=== PATIENT | male | born 1950 | race Caucasian/White ===

== ENCOUNTER → 2017-05-08 | Outpatient (CLI) | payer OTHER ==
[~2017-05-08] MED LIST: ASPI81TA82 PO; AUGM875T PO; HYDR-3533 PO; NEBI2.5 PO
--- NOTE | 2017-05-09 10:13 | RSPPFT ---
DATE OF PROCEDURE: 05/08/17 COMMENTS: Spirometry shows FVC of 3.5 at 67% of predicted, FEV1 of 2.5 at 61%, FEV1/FVC ratio is decreased. Flow is decreased at FEF 25 FEF 50, FEF 75 and FEF 25-75. There is no response to bronchodilator treatment. Lung volumes show residual volume is increased. TLC is normal. Diffusion capacity is normal. Flow volume loop indicates an obstructive pattern. IMPRESSION: 1. Mild obstructive lung disease. 2. No response after bronchodilator treatment. 3. Lung volumes show mild hyperinflation. 4. Diffusion capacity is normal.
== END ==
LOC: PHRSP 07:37
PROVIDERS: ATTEND Specialist
DX: J44.9 Chronic obstructive pulmonary disease, unspecified (principal)
CPT/HCPCS: 94060; 94726; 94729

== ENCOUNTER 2017-06-12 06:24 | Day surgery (SDC) | payer OTHER ==
[~2017-06-12] VITALS: Ht 190.5 cm; Wt 104.5 kg
[2017-06-12] VITALS (7 sets, daily range): BP systolic 116–145; BP diastolic 76–89; PULSE 77–95; RESP 17–20; TEMP 97.9–98.4; O2SAT 95–98
[2017-06-12] MEDS ORDERED: ASPI-516 CHEW (06:48)
[2017-06-12] MEDS ORDERED: OMEP2.5S (06:48)
[2017-06-12] MEDS ORDERED: BUPR150XL PO (06:48)
[2017-06-12] MEDS ORDERED: LORA0.5T PO (07:15)
[2017-06-12] MEDS ORDERED: SODIUM CHLOR 0.9% 1000 ML IV SCH (07:30)
[2017-06-12] MEDS ORDERED: SODIUM CHLORIDE 2 ML FLUSH PRN IV FLUSH (07:30)
[2017-06-12] MEDS ORDERED: LIDOCAINE HCL 1% PF 30 ML VIAL ONE (07:59)
[2017-06-12] MEDS ORDERED: MIDAZOLAM HCL 2 MG/2 ML VIAL ONE (08:11)
--- NOTE | 2017-06-12 08:57 | PD.RAD ---
Post CT Procedure Prog Note Pre Procedure Diagnosis: (1) Pulmonary nodule Post Procedure Diagnosis: (1) Pulmonary nodule Procedure Date: Jun 12, 2017 Supervising Radiologist: Yunier Velasco Estimated blood loss: minimal Anesthesia: Conscious Sedation Plan of Activity Patient to Unit: [facility] Patient Condition: Good See PACS Report for procedural detail/treatment Biopsy Imaging Guidance: CT Side: Right Biopsy Procedure: Lung Site: upper lobe/hilar nodule Specimen: Core Biopsy Plan to [facility] for monitoring then discharge in 4 hours if no pneumothorax. Yunier Velasco MD Jun 12, 2017 08:57
[2017-06-12] MEDS ORDERED: oxyCODONE/ACETAMINOPHEN 5 MG/325 MG TAB PO PRN (09:00)
[2017-06-12] MEDS ORDERED: SODIUM CHLORIDE 2 ML FLUSH BID IV FLUSH SCH (09:00)
--- NOTE | 2017-06-12 09:41 | RADRPT ---
EXAM DATE/TIME: 06/12/2017 08:20 [facility] COMPARISON: No previous studies available for comparison. INDICATIONS : Right lung mass SEDATION TIME: 15 minutes BIOPSY SITE: Right lung MEDICATION(S): 1.) 2 mg midazolam (Versed) IV 2.) 100 mcg fentanyl (Sublimaze) IV DEVICE(S): 1.) 18 gauge Galvez blunt needle 2.) 20 gauge Temno core biopsy needle MEDICAL HISTORY : Hypertension. Gastroesophageal reflux disease. SURGICAL HISTORY : Appendectomy. ENCOUNTER: Initial ACUITY: 1 day PAIN SCORE: 0/10 LOCATION: Right chest A total of five core specimen(s) were obtained and sent to the laboratory for pathologic evaluation. PROCEDURE: 1. CT guided lung biopsy. 2. Conscious sedation with continuous EKG and oximetry monitoring. 3. EKG and oximetry remained stable throughout the procedure. Prior to the procedure informed consent was obtained. The patient's prior CT and PET CT examinations were reviewed. Using automated exposure control and adjustment of the mA and/or kV according to patie nt size, radiation dose was kept as low as reasonably achievable to obtain optimal diagnostic quality images. DICOM format image data is available electronically for review and comparison. The site was prepped in a sterile fashion. Full sterile technique was used, including cap, mask, vignesh rile gloves and gown and a large sterile sheet. Hand hygiene and 2% chlorhexidine and/or betadine/al cohol prep was utilized per protocol for cutaneous antisepsis. The skin and subcutaneous tissues wer e infiltrated with local anesthetic solution. With CT guidance the right hilar mass was localized. Biopsy was performed using the prescribed needle as above. Adequate hemostasis was obtained with compression at the puncture site. Follow-up CT scan reveals no pneumothorax or acute abnormality. Conscious sedation was performed with the prescribed dosages and duration as above in the presence of an independent trained radiology nurse to assist in the monitoring of the patient. EKG and oximetry remained stable throughout the procedure. The patient tolerated the procedure well and there were no complications. The patient was sent to Radiology Outpatient Unit in stable condition. CONCLUSION: Uncomplicated CT guided biopsy right hilar mass. Yunier Velasco MD on June 12, 2017 at 9:37 Board Certified Radiologist. This report was verified electronically.
--- NOTE | 2017-06-12 11:00 | RADRPT ---
EXAM DATE/TIME: 06/12/2017 10:25 [facility] COMPARISON: CT NEEDLE BIOPSY LUNG, RIGHT, June 12, 2017, 8:20. INDICATIONS : Evaluate for pneumothorax. MEDICAL HISTORY : Hypertension. Gastroesophageal reflux disease. SURGICAL HISTORY : Appendectomy. ENCOUNTER: Initial ACUITY: 1 day PAIN SCORE: 110 LOCATION: Right chest FINDINGS: Single view of the chest is provided. There is no pneumothorax. The examination demonstrates a sizable mass in the right hilum measuring 5.7 x 5.4 cm. There is eithe r consolidation or small mass seen on the left measuring 2.2 x 2.2 cm. The heart is normal in size. Osseous structures are grossly intact. CONCLUSION: 1. No pneumothorax following CT guided biopsy of the right lung. Saroj Burrell MD on June 12, 2017 at 10:55 Board Certified Radiologist. This report was verified electronically.
--- NOTE | 2017-06-12 12:39 | RADRPT ---
EXAM DATE/TIME: 06/12/2017 11:54 [facility] COMPARISON: CHEST EXPIRATION ONLY, June 12, 2017, 10:25. INDICATIONS : Evaluate for pneumothorax. MEDICAL HISTORY : Hypertension. Gastroesophageal reflux disease. SURGICAL HISTORY : Appendectomy. ENCOUNTER: Subsequent ACUITY: 1 day PAIN SCORE: 0/10 LOCATION: Bilateral chest FINDINGS: There is a 5.7 x 5.4 cm mass with surrounding atelectasis in the right misah. There is questionable ab normality in the left upper lobe as well. No pneumothorax is seen. The heart is normal in size. The o sseous structures are grossly intact. The exam is unchanged from prior time at 10: 25 AM. CONCLUSION: 1. No pneumothorax identified. 2. Stable appearance of the right hilum. Saroj Burrell MD on June 12, 2017 at 12:34 Board Certified Radiologist. This report was verified electronically.
== END 2017-06-12 13:03 | disposition home or self-care (01) ==
LOC: HRAD 06:24 → HRIP 06:40 → HRAD 13:03
PROVIDERS: ATTEND Internal Medicine
DX: C34.91 Malignant neoplasm of unspecified part of right bronchus or lung (principal); I10 Essential (primary) hypertension; K21.9 Gastro-esophageal reflux disease without esophagitis
CPT/HCPCS: 32405; 71045; 77012; 88305; 88341; 88342; J2250; J3010; J7030